=== PATIENT | female | born 2000 | race Caucasian/White ===

== ENCOUNTER 2019-05-30 21:39 | Observation (INO) | payer BC, OTHER ==
--- NOTE | 2019-05-30 22:14 | ED ---
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 Patient states her chest pain has not improved since last night. States her chest pain has improved slightly with ibuprofen. No pain/ swelling of bilateral extremities. States she has recently been around other sick college students. States she was able to go to class today but not work. States she had similar episode 3 years ago with chest pain, SOB, weakness. States she had elevated troponin in her bloodwork, was dx myocardial carditis and admitted to ICU. States she was recommended to take ibuprofen if she ever developed chest pain again. Today, patient states her mother spoke with her fagoting machine operator who referred patient to ED. Symptoms aggravated by deep breaths. Symptoms alleviated by ibuprofen. No change in symptoms with change in position. Patient states she takes melatonin and oral contraception. Occasionally drinks alcohol. - History of Current Complaint Chief Complaint: EDChestPainROMI Time Seen by Provider: 05/30/19 22:06 Hx Obtained From: Patient Onset/Duration: Started Hours Ago - 24, Still Present Timing: Constant Current Severity: Moderate Pain Intensity: 5 Pain Scale Used: 0-10 Numeric Chest Pain Location: Mid Sternal Chest Pain Radiates: No Aggravating Factor(s): Nothing Alleviating Factor(s): Other: - ibuprofen Associated Signs and Symptoms: Positive: Negative - pain/swelling of bilateral extremities, Shortness of Breath - Allergy/Home Medications Allergies/Adverse Reactions: Allergies Allergy/AdvReac Type Severity Reaction Status Date / Time hydrocodone Allergy Unknown Verified 05/30/19 21:52 Reaction Details lidocaine Allergy Unknown Verified 05/30/19 21:52 Reaction Details ondansetron [From Zofran] Allergy Unknown Verified 05/30/19 21:52 Reaction Details oxycodone Allergy Unknown Verified 05/30/19 21:52 Reaction Details tramadol Allergy Unknown Verified 05/30/19 21:52 Reaction Details Home Medications: Home Medications Ferrous Sulfate TAB* 325 mg PO DAILY 05/31/19 [History Confirmed 05/31/19] Larissia-28 Tablet 1 tab PO DAILY 05/31/19 [History Confirmed 05/31/19] Melatonin/Pyridoxine HCl (B6) [Melatonin] 1 tab PO QPM 05/31/19 [History Confirmed 05/31/19] PMH/Surg Hx/FS Hx/Imm Hx Endocrine/Hematology History: Denies: Hx Diabetes Cardiovascular History: Reports: Other Cardiovascular Problems/Disorders - myocardial carditis - Surgical History Surgical History: None Infectious Disease History: No Infectious Disease History: Denies: Traveled Outside the [place] in Last 30 Days - Family History Known Family History: Negative: Seizure Disorder - Social History Alcohol Use: Occasionally Substance Use Type: Reports: None Hx Tobacco Use: No Smoking Status (MU): Never Smoked Tobacco Review of Systems Positive: Chest Pain Positive: Shortness Of Breath Musculoskeletal: Negative - pain/swelling of bilateral extremities All Other Systems Reviewed And Are Negative: Yes Physical Exam - Summary Physical Exam Summary: Appearance: Well-appearing, Well-nourished, lying in bed comfortably Skin: Warm, dry, no obvious rash Eyes: sclera anicteric, no conjunctival pallor ENT: mucous membranes moist, pharynx appears normal Neck: Supple, nontender Respiratory: Clear to auscultation, no signs of respiratory distress Cardiovascular: Normal S1, S2. No murmurs. Normal distal pulses in tibial and radial bilaterally. No pericardial friction rub in either supine or sitting forward positions. Abdomen: Soft, nontender, normal active bowel sounds present Musculoskeletal: Normal, Strength/ROM Intact Neurological: A&Ox3, awake and alert, mentation is normal, speech is fluent and appropriate Psychiatric: affect is normal, does not appear anxious or depressed Triage Information Reviewed: Yes Vital Signs On Initial Exam: Initial Vitals Temp Pulse Resp BP Pulse Ox 98.4 F 64 18 113/82 100 05/30/19 21:49 05/30/19 21:49 05/30/19 21:49 05/30/19 21:49 05/30/19 21:49 Vital Signs Reviewed: Yes Procedures - Sedation Patient Received Moderate/Deep Sedation with Procedure: No Diagnostics - Vital Signs Vital Signs Temp Pulse Resp BP Pulse Ox 05/30/19 21:49 98.4 F 64 18 113/82 100 - Laboratory Result Diagrams: 05/30/19 22:23 05/30/19 22:23 Lab Statement: Any lab studies that have been ordered have been reviewed, and results considered in the medical decision making process. - Radiology CXR Radiology Interpretation Completed By: ED Physician Summary of Radiographic Findings: No acute process. Pending official report - EKG 2137 Cardiac Rate: NL - 62 BPM EKG Rhythm: Sinus Rhythm Summary of EKG Findings: NSR at 62 BPM, P waves, QRS complex, and T waves are within normal limits, T waves and intervals are normal, no ischemic changes. This is a normal EKG. Re-Evaluation - Re-Evaluation First Eval Re-Evaluation Time: 23:45 Change: Unchanged Comment: patient agreeable to admission Chest Pain Course/Dx - Course Course Of Treatment: 18 year old F complains of mid sternal chest pain with associated shortness of breath since 24 hours ago. Hx elevated troponin and hx myocardial carditis. Was referred to ED today by her fagoting machine operator. Physical exam findings: unremarkable. Bloodwork results with no significant abnormalities except for MCH 33 and troponin 0.45. An EKG shows NSR at 62 BPM, P waves, QRS complex, and T waves are within normal limits, T waves and intervals are normal, no ischemic changes. This is a normal EKG. CXR shows no acute process. Dr. Ashby, cardiology, recommends admission to hospitalist for observation and states cardiology will see her tomorrow. Dr. Rhodes, hospitalist, agrees to admit patient. The patient will be admitted to the hospitalist. The patient is agreeable with this plan. - Diagnoses Provider Diagnoses: Myocarditis - Provider Notifications Discussed Care Of Patient With: Anahi Ashby Time Discussed With Above Provider: 23:33 Instructed by Provider To: Other - Dr. Ashby, cardiology, recommends admission to hospitalist for observation and states cardiology will see her tomorrow. Dr. Rhodes, hospitalist, agrees to admit patient at 21:45. Discharge ED - Sign-Out/Discharge Documenting (check all that apply): Patient Departure - Admit - Discharge Plan Condition: Stable Disposition: ADMITTED TO [facility] - Billing Disposition and Condition Condition: STABLE Disposition: Admitted to [facility] - Attestation Statements Document Initiated by Scribe: Yes Documenting Scribe: Meagan Colón Provider For Whom Kimberley is Documenting (Include Credential): Bryn Rocha MD Scribe Attestation: Meagan Dahl, scribed for Bryn Rocha MD on 05/31/19 at 0512. Scribe Documentation Reviewed: Yes Provider Attestation: The documentation as recorded by the Meagan roberto accurately reflects the service I personally performed and the decisions made by me, Bryn Rocha MD Status of Scribe Document: Viewed
[2019-05-30 22:30] LABS: ABS Eosinophils 0.1 10^3/ul (0-0.6); ABS Lymphocytes 3.3 10^3/ul (1.0-4.8); ABS Monocytes 0.5 10^3/ul (0-0.8); ABS Neutrophils 4.5 10^3/ul (1.5-7.7); Eosinophil % 1.1 %; Hematocrit 37 % (35-47); Hemoglobin 12.8 g/dL (12.0-16.0); Lymphocyte % 38.6 %; Mean Corpuscular HGB Conc 34 g/dL (31-36); Mean Corpuscular Hemoglobin 33 pg (27-31); Mean Corpuscular Volume 95 fL (80-97); Mean Platelet Volume 8.8 fL (7.4-10.4); Platelet Count 261 10^3/uL (150-450); Red Blood Count 3.93 10^6 /uL (3.70-4.87); Red Cell Distribution Width 13 % (10-15); White Blood Count 8.4 10^3/uL (3.5-10.8)
[2019-05-30 22:48] LABS: ALT 15 U/L (7-52); AST 20 U/L (13-39); Albumin 4.4 g/dL (3.2-5.2); Albumin/Globulin Ratio 1.7 (1-3); Alkaline Phosphatase 46 U/L (34-104); Anion Gap 5 mmol/L (2-11); BUN/Creatinine Ratio 8.9 (8-20); Blood Urea Nitrogen 7 mg/dL (6-24); CO2 Carbon Dioxide 28 mmol/L (22-32); Calcium 9.6 mg/dL (8.6-10.3); Chloride 106 mmol/L (101-111); EGFR African American 113.4 (>60); EGFR Non-African American 93.8 (>60); Globulin 2.6 g/dL (2-4); Glucose 96 mg/dL (70-100); Potassium 3.8 mmol/L (3.5-5.0); Sodium 139 mmol/L (135-145)
[2019-05-30 22:55] LABS: HCG Pregnancy < 0.60 mIU/mL
[2019-05-30 22:56] LABS: Troponin I 0.45 ng/mL (<0.04)
[2019-05-30 23:56] LABS: C Reactive Protein < 1.00 mg/L (<8.01)
[2019-05-31] MEDS ORDERED: Ibuprofen TAB* 600 MG PO ONE (04:09)
[2019-05-31] MEDS: NS 0.9% 1000 ML** 1,000 ML IV SCH ×3 (05:13→23:45)
[2019-05-31 06:58] LABS: Troponin I 0.74 ng/mL (<0.04)
--- NOTE | 2019-05-31 07:28 | HP ---
ADMISSION HISTORY AND PHYSICAL: DATE OF ADMISSION: 05/31/19 CHIEF COMPLAINT: Chest pain. HISTORY OF PRESENT ILLNESS: This is a 18-year-old student from [employer] with past medical history of myopericarditis diagnosed roughly 2 to 3 years ago when she was just 15 or 16 years old, who was admitted to the ICU and given some ibuprofen, she clinically improved and was doing fine. She was stressed about presentation she had to give in front of her class. She felt a little nauseous before the presentation, but the nausea resolved, but after presentation, on Tuesday evening, she started having substernal chest pain radiating to her back accompanied by shortness of breath, fatigue, no cough, no fever, no chills. She also recollected that she had an episode of cold symptoms with cough about a week ago, but that has resolved since then. She denies any abdominal pain, vomiting, any diarrhea, or constipation, any numbness , tingling, weakness. During the placement of IV, the patient did have an episode where she was severely dizzy and lightheaded and it was documented that the patient may have seized and subsequently was noted to be bradycardic with a 4- to 5-second pause followed by bradycardia again, but she quickly regained her consciousness and was back to her baseline. PAST MEDICAL HISTORY: As mentioned, she did have a similar event of the kira versus pericarditis 3 years ago, history of depression for which she just medicates herself with Weogufka's Wort. PAST SURGICAL HISTORY: Includes wisdom tooth extraction and some dental gum graft placement. HOME MEDICATIONS: The patient is currently on: 1. Larissia as oral contraceptive daily. 2. Melatonin to help her sleep. 3. Ferrous sulfate/iron along with the Weogufka's Wort, which she takes on a regular basis. ALLERGIES: She does not actually have any allergies, but the patient was tested with [employer] and was noted to have some genetic variance with decreased processing of hydrocodone, lidocaine, Zofran, oxycodone, and tramadol, but these are not true allergies. FAMILY HISTORY: The patient's mom is in her 50s, is otherwise healthy. Her father is a sperm donor and she does not known much about his history. Her sister, who is also a half-sister from a different sperm donor, is 13 years old and also healthy. SOCIAL HISTORY: She denies any smoking, although she did state that she used to smoke the Juul, which is an e-cigarette type during her senior years and she has also tried marijuana in the past. She currently studies in college and has tried occasional alcohol. She is in the [employer] and her mom is in [place], who is her surrogate decision-maker. REVIEW OF SYSTEMS: A 14-point review of systems did not reveal any new information other than what is mentioned in the HPI. PHYSICAL EXAMINATION GENERAL: The patient is awake, alert, oriented x3, did not appear to be in any acute respiratory distress. VITAL SIGNS: In the ER, BP was noted to be 118/64, heart rate 72, respiration rate 18, saturating 100% on room air, temperature was recorded at 98.4. HEAD AND NECK: Atraumatic, normocephalic. Bilateral pupils are reactive. Oral mucosa was moist. NECK: Supple. No jugular venous distention. LUNGS: Clear to auscultation bilaterally. No wheezing, rhonchi, rales. HEART: S1, S2. Regular rate and rhythm. DIAGNOSTIC STUDIES/LAB DATA: CBC was unremarkable. D-dimer was less than 200. Comprehension metabolic panel was unremarkable with the exception of troponin, which was 0.45 initially and repeat troponin was 0.60. EKG was showing sinus rhythm with 62 beats per minute without any significant ST elevation. AVF does show some less than 0.[address] segment elevation, but this is an isolated incident. IMPRESSION: This is a 18-year-old female with history of myopericarditis, here due to chest pain without any ST elevations or changes, but does note to have some elevated troponin. ASSESSMENT: 1. Chest pain with elevated troponin, unclear etiology. I do not see any pericarditis at this point, but given her previous history, we will give a dose of ibuprofen as the risk of using ibuprofen is very low and check an echocardiogram. We will consult Cardiology regarding further treatment plan. 2. History of temporary bradycardia during IV insertion with questionable convulsion. We will place the patient on seizure precautions, but otherwise I do not see a point of anticonvulsants at this point as it is possible that the shaking that the nurse saw was just related to bradycardia. If this symptom recurs, we would consider an EEG versus neurological evaluation by neurologist. 3. History of depression. 4. DVT prophylaxis with encouragement of the ambulation. [id number]/[facility] #: [id number] JULIANE
--- NOTE | 2019-05-31 07:38 | PN ---
Subjective Date of Service: 05/31/19 Interval History: HD 1 in 05/31 Complains of substernal chest pain-12/01. NO fever, chills, SOB, palpitation at present Had cold 1 week ago. has exposure to sick contact in college Objective Active Medications: Sodium Chloride (Ns 0.9% 1000 Ml) 1,000 mls @ 100 mls/hr IV PER RATE ROSA Last Admin: 05/31/19 05:13 Dose: 100 mls/hr Vital Signs - 8 hr 05/31/19 05/31/19 05/31/19 00:30 00:47 01:00 Temperature Pulse Rate 76 77 66 Respiratory 22 15 23 Rate Blood Pressure 110/77 123/79 117/69 (mmHg) O2 Sat by Pulse 99 98 100 Oximetry 05/31/19 05/31/19 05/31/19 01:15 01:30 01:45 Temperature Pulse Rate 74 71 71 Respiratory 18 20 18 Rate Blood Pressure 110/70 109/69 120/68 (mmHg) O2 Sat by Pulse 100 99 98 Oximetry 05/31/19 05/31/19 05/31/19 02:00 02:15 02:30 Temperature Pulse Rate 69 95 72 Respiratory 20 18 18 Rate Blood Pressure 112/68 118/67 114/75 (mmHg) O2 Sat by Pulse 99 99 98 Oximetry 05/31/19 05/31/19 05/31/19 02:45 03:12 03:15 Temperature Pulse Rate 101 78 Respiratory 16 16 21 Rate Blood Pressure 123/74 130/73 (mmHg) O2 Sat by Pulse 98 97 Oximetry 05/31/19 05/31/19 05/31/19 03:30 03:45 04:00 Temperature Pulse Rate 81 79 71 Respiratory 17 21 18 Rate Blood Pressure 122/71 122/72 116/75 (mmHg) O2 Sat by Pulse 99 99 Oximetry 05/31/19 05/31/19 05/31/19 04:15 04:19 04:30 Temperature Pulse Rate 69 92 71 Respiratory 20 15 18 Rate Blood Pressure 114/66 114/66 118/64 (mmHg) O2 Sat by Pulse 98 98 99 Oximetry 05/31/19 05/31/19 05/31/19 04:45 05:07 05:10 Temperature 98.4 F 98.6 F Pulse Rate 93 80 63 Respiratory 24 15 16 Rate Blood Pressure 118/75 123/79 118/64 (mmHg) O2 Sat by Pulse 98 98 100 Oximetry 05/31/19 07:12 Temperature Pulse Rate Respiratory 18 Rate Blood Pressure (mmHg) O2 Sat by Pulse Oximetry Oxygen Devices in Use Now: None Exam: Patient is sitting in a bed with no acute distress. HEENT: Normocephalic and Atraumatic Lungs: Clear with no added sounds Heart: S1/S2 heard with no murmur Abdomen: soft, nondistended and nontender Extremities: Normal Neuro: Alert, oriented and conscious Result Diagrams: 05/30/19 22:23 05/30/19 22:23 Assess/Plan/Problems-Billing Assessment: 18 y/o F with h/o myopericarditis 3 years ago presented with acute substernal pleuritic chest pain associated with sob. FOund to have elevated troponin with 1 episode of bradycardia. - Patient Problems (1) Myopericarditis Current Visit: Yes Status: Acute Code(s): I31.9 - DISEASE OF PERICARDIUM, UNSPECIFIED SNOMED Code(s): 707437084 Comment: -hs substernal chest pain;+/- pleuritic; positional -has flu like sx 1 week ago; sick contact present -Initial EKG normal; ECG this mornin gshows shows minimal ST elevation in avF and III. - Troponin elevated: indicates muscle damage -ECHo normal EF with no pericardial effusion and no RWMA. -We will follow serial ECG and troponin -will give ibuprofen and colchicine -cardio following - has recurrent pericarditis; so need to rule out autoimmune process -refrain from exertion (2) Bradycardia Current Visit: Yes Status: Acute Code(s): R00.1 - BRADYCARDIA, UNSPECIFIED SNOMED Code(s): 57664149 Comment: -transient in ED; after she was told that someone will draw blood -resolved now -may be vasovagal syncope -has similar history in past; fainted after blood draw -we will monitor her in tele (3) Depression Current Visit: Yes Status: Acute Code(s): F32.9 - MAJOR DEPRESSIVE DISORDER , SINGLE EPISODE, UNSPECIFIED SNOMED Code(s): 54806658 Comment: -no active suicidal ideation at present -was using oj wort (4) DVT prophylaxis Current Visit: Yes Status: Acute Code(s): Z29.9 - ENCOUNTER FOR PROPHYLACTIC MEASURES, UNSPECIFIED SNOMED Code(s): 872419181 Comment: -low risk (5) Full code status Current Visit: Yes Status: Acute Code(s): Z78.9 - OTHER SPECIFIED HEALTH STATUS SNOMED Code(s): 719315713 Status and Disposition: Inpatient; cardio following Attending: Aiden Horner Attestation Documenting Resident: Ruben Hayward Supervising Physician: Aiden Horner Attending/Supervising Physician Comment: Agree with plan as outlined in note from today unless indicated. Chest pain - history of myopericarditis but non elevated inflammatory markers and no EKG changes. This has been the case in [place] past after conversations with her inspector wire products. She has had cMRI that was consistent with myopericarditis. Motrin/Colchine and monitor overnight. Attestation: This service has been performed in part by a resident under the direction of a teaching physician.I, Aiden Horner, performed the service, or was physically present during the critical, or medina portions of the service, furnished by the resident. I participated in the management of the patient.
[2019-05-31] MEDS ORDERED: Aspirin TAB* 325 MG PO ONE ×2 (07:49→12:24)
[2019-05-31] MEDS ORDERED: Potassium Chloride* LIQUID 20 MEQ/15 ML UDC PO ONE (08:31)
[2019-05-31 08:52] LABS: C Reactive Protein < 1.00 mg/L (<8.01)
[2019-05-31 09:53] LABS: Troponin I 0.93 ng/mL (<0.04)
[2019-05-31] MEDS ORDERED: Colchicine* 0.6 MG TAB PO SCH (10:00)
[2019-05-31] MEDS: Ibuprofen TAB* 600 MG PO SCH ×2 (10:42→17:43)
--- NOTE | 2019-05-31 13:00 | ECHO ---
*[facility]* [place] [address] Fax #: [phone] Transthoracic Echocardiogram Patient: Paty Wade : 2000 Study Date: 05/31/2019 Age: 18 Gender: F HR: 73 bpm Height: 63 in /160 cm BSA: 1.53 m^2 Weight: 114.8 lb /52.2 kg BMI: 20.4 kg/m^2 *Benefits Administrator: * Britt Carrillo RD *Referring Physician: * Mikhail Paredes MD *Reading Physician: * Mikhail Paredes MD History: PMH: Myopericarditis. Conclusions Summary: - Impressions: The study is unchanged since the study of September 2017. - Left ventricle: Systolic function is normal. The estimated ejection fraction is 55-60%. - Mitral valve: There is trace to mild regurgitation. - Tricuspid valve: There is physiologic regurgitation. Study data: Transthoracic echocardiogram. Procedure: Transthoracic echocardiography was performed. Image quality was fair. The study was technically limited due to poor acoustic window availability. Complete 2D, spectral Doppler, and color flow Doppler. Location: Bedside. Patient status: Inpatient. Patient room number: 453. The previous study was not available, so comparison is made to the report of September 2017. Rhythm: Normal sinus rhythm. Findings Left ventricle: The cavity size is normal. Wall thickness is normal. Systolic function is normal. The estimated ejection fraction is 55-60%. Wall motion is normal; there are no regional wall motion abnormalities. Left ventricular diastolic function parameters are normal. Right ventricle: The cavity size is normal. Systolic function is normal. Systolic pressure is within the normal range. Left atrium: The atrium is normal in size. Right atrium: The atrium is normal in size. Mitral valve: The leaflets are normal thickness. There is no evidence of stenosis. There is trace to mild regurgitation. Aortic valve: The valve is trileaflet. The leaflets are normal thickness. There is no evidence of stenosis. There is no significant regurgitation. Tricuspid valve: The leaflets are normal thickness. There is no evidence of stenosis. There is physiologic regurgitation. Pulmonic valve: The leaflets are normal thickness. There is no evidence of stenosis. There is trace regurgitation. Aorta: Aortic root: The aortic root is appears normal. Ascending aorta: The ascending aorta is appears normal. Aortic arch: The aortic arch is appears normal. Pericardium: There is no significant pericardial effusion. Doppler: Respirophasic change in transvalvular velocities is within normal limits. Pulmonary arteries: The main pulmonary artery is normal-sized. Systolic pressure is within the normal range. Systemic veins: Inferior vena cava: The vessel is normal in size. There is (>= 50%) respiratory change in the IVC dimension. Measurements Left ventricle Value Ref Aortic valve Value Ref LASHANDA, LAX 4.1 cm 3.8 - 5.2 Gloria diam, ED 1.8 cm ----- ESD, LAX 2.5 cm 2.2 - 3.5 Peak v, S 1.1 m/sec ----- FS, LAX 39 % 27 - 45 VTI, S 20.6 cm ----- PW, ED, LAX 0.8 cm 0.6 - 0.9 Mean grad, S 3.0 mm Hg ----- FS 39 % 27 - 45 Peak grad, S 5.0 mm Hg ----- PW, ED 0.8 cm 0.6 - 0.9 LVOT/AV, VTI ratio 0.92 ----- E', lat gloria, TDI 20.0 cm/sec >=10.0 E/e', lat gloria, 4 Mitral valve Value Ref TDI Peak E 0.78 m/sec ----- E', med gloria, TDI 14.5 cm/sec >=7.0 Peak A 0.35 m/sec --- -- E/e', med gloria, 5 Decel time 173 ms ----- TDI Peak grad, D 2.4 mm Hg ----- E', avg, TDI 17.3 cm/sec Peak E/A ratio 2.2 ----- E/e', avg, TDI 4 <=14 Pulmonic valve Value Ref LVOT Value Ref Peak v, S 0.79 m/sec ----- Peak tommie, S 0.98 m/sec Peak grad, S 3.0 mm Hg ----- VTI, S 19.0 cm Mean grad, S 2 mm Hg Tricuspid valve Value Ref TR peak v 2.13 m/sec <=2.8 Ventricular septum Value Ref Peak RV-RA grad, S 18 mm Hg ----- IVS, ED 0.8 cm 0.6 - 0.9 Aortic root Value Ref Right ventricle Value Ref Root diam 2.3 cm <2.9 LASHANDA, LAX 2.7 cm LASHANDA minor ax, A4C 3.4 cm 1.9 - 3.5 Ascending aorta Value Ref mid AAo AP diam, S 2.3 cm ----- Pressure, S 21 mm Hg Aortic arch Value Ref Left atrium Value Ref Arch diam 1.7 cm ----- AP dim, ES 2.90 cm 2.70 - 3.80 Decending aorta Value Ref ML dim, A4C 3.9 cm Quita peak tommie 1.04 m/sec ----- SI dim, A4C 4.3 cm Vol/bsa, ES, 1-p 29 ml/m^2 11 - 40 Pulmonary artery Value Ref A4C Pressure, S 18.0 mm Hg ----- Vol/bsa, ES, A/L 25 ml/m^2 16 - 34 Inferior vena cava Value Ref Right atrium Value Ref Diam 1.6 cm ----- SI dim, ES 4.1 cm 3.4 - 5.3 ML dim, ES, A4C 3.8 cm 2.6 - 4.4 SI dim, ES, A4C 4.1 cm 3.4 - 5.3 Estimated RAP 3 mm Hg Legend: (L) and (H) samantha values outside specified reference range. Prepared and electronically signed by Mikhail Paredes MD 05/31/2019 13:00
[2019-05-31 13:26] LABS: Troponin I 0.94 ng/mL (<0.04)
--- NOTE | 2019-05-31 14:00 | CONS ---
CARDIOLOGY CONSULTATION: DATE OF CONSULT: 05/31/19 PATIENT OF: Dr. Serrano. REASON FOR EVALUATION: Chest pain, troponin elevation. HISTORY OF PRESENT ILLNESS: This is a 18-year-old woman who has a history of chest pain, thought to be due to myopericarditis. In the past, she has had elevated troponins with her episodes, but without significant EKG changes or inflammatory marker elevations. She says her first episode was about 3 years ago and she was hospitalized for 5 days. She apparently had recurrent episodes and was seen in September of 2016 for chest pain. She originally presented on 11/18, presumably with chest, neck and back pain and subtle ST elevations, troponin elevation, normal cardiac function by echo. She was diagnosed with presumed myopericarditis, started on ibuprofen which she took for 2 weeks and colchicine 0.6 mg twice a day. She had another episode in November and had a troponin elevation despite no active chest pain. She was watched until her troponin normalized. At that visit, she had cardiac MRI with gadolinium enhancement, which revealed enhancement in the myocardium and epicardium confirming the provisional diagnosis. Her symptoms were somewhat atypical and she did not have any prodrome viral illnesses. Alternate diagnoses were considered and she was discharged home on ibuprofen and colchicine. In January of 2017, she apparently had some episodes of mild chest pain. Workup at that time revealed no recurrent myopericarditis. The patient said that she has had episodes of chest pain lasting a few hours approximately once every few months. She attributes them to being provoked with stress. She said that she had an upper respiratory infection about 2 weeks ago with a cold that lasted about 4 to 5 days. She thinks she had some chills at that time. No significant fever. She said she recovered from that and was preparing for a speech which she had to give on Tuesday night at 7:30. She did that and then afterwards developed chest pain. She said it was similar to her previous episodes. She felt tired and took some ibuprofen. Because she slept much of Tuesday, she was able to go to class, but felt fatigued. She decided not to go to work. She took more ibuprofen on Tuesday and because of persistent pain, she decided to come to the emergency room yesterday. She denies any nausea, vomiting, diarrhea. No fevers or chills currently. No orthopnea. She apparently did have an episode of syncope when an IV was being placed. She said that she felt sweaty beforehand and felt her vision dim and then passed out. She said she had a similar episode like that when blood was being drawn when she was hospitalized for myopericarditis 3 years ago. She said that the ibuprofen has only partially improved her pain, which has gone from 5-6/10 down to 3/10. She said that she had been able to get out of bed and go to the bathroom. She said her pain is worse lying down and better sitting up. It is more of a pressure. She said that she was active in sports when she was in high school, but had not had time for regular exercise at college. PAST MEDICAL HISTORY: History of presumed myopericarditis; possible ADHD, not on medications since approx 3 years ago; and chronic persistent back pain. PAST SURGICAL HISTORY: Includes wisdom teeth extracted and a skin graft in her mouth in the past. HOME MEDICATIONS: Include: 1. Larissia as an oral contraceptive. 2. Melatonin for sleep. 3. Iron. 4. [place]'s Wort. ALLERGIES: She denies any allergies, although she was tested with [employer] and noted to have some genetic variance with decreased processing to hydrocodone, lidocaine, Zofran, oxycodone, and tramadol. FAMILY HISTORY: Reveals her mom in her 50s who is healthy. Father was a sperm donor and history is unknown. Her sister who is a half-sister, 13 years old and healthy. SOCIAL HISTORY: She denies tobacco use. She says she occasionally has alcohol and can drink up to 4 drinks on the weekends. She denies recreational drugs. 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 She resides in [place]. ros neg x 10 except as above. PHYSICAL EXAM: She is a well-developed, well-nourished female, in no apparent distress. Her blood pressure is 101/53, pulse of 90, O2 sat 99% on room air, temperature 98.1. Atraumatic, normocephalic. Extraocular muscles intact. Sclerae anicteric. No significant JVD. Carotids 2+ without bruits. No cervical adenopathy. Cardiac Exam: S1, S2 without murmurs, gallops, or rubs; physiologically split S2. Chest was clear. No CVAT. Abdomen: Bowel sounds present. Nontender. Femoral pulses intact without bruits. Distal pulses intact. No edema. Motor strength 5/5 bilaterally. Deep tendon reflexes 2/4 in the lower extremities and right upper extremity. Left upper extremity was not tested due to the IV bandage. DIAGNOSTIC STUDIES/LAB DATA: Labs include troponin was 0.45 last night, 0.60 at 2:50 a.m. today, 0.74 at 6:30 and 0.93 at 9:20. Her CRP was less than 1 x2. Her beta hCG was negative. Potassium was 3.8, BUN was 7, creatinine of 0.79. CBC was unremarkable and sed rate was 6. Chest x-ray was unremarkable. EKG from 05/30/19 at 2137 revealed sinus rhythm. No acute changes. Repeat EKG from 8:27 this morning revealed sinus rhythm with minimal ST elevation in III and aVF compared to yesterday. IMPRESSION AND PLAN: My impression is that Ms. Wade appears to have a recurrent episode of myopericarditis, although somewhat atypical in terms of the pattern of the pain and the lack of inflammatory markers. This presentationt seems to be similar in presentation to other episodes she has had. I did discuss this with the patient and with Dr. Horner, who had spoken to her heel seat flap stapler in [place] and confirmed the history of previous episodes with similar presentations. She also had an episode of syncope when her IV was being placed. It appeared that she developed sinus bradycardia with some pauses followed by a junctional rhythm, which raises the possibility of a vasovagal episode. I did discuss with her the importance of pain control and avoidance of exertion until she recovers. For the time being, I would recommend the followin. I would follow her serial troponins and observe for resolution of her troponin elevations. 2. We would follow serial EKGs. 3. We would maintain a potassium over 4. 4. We would use nonsteroidal anti-inflammatories as tolerated and consider using aspirin if she fails to have control with ibuprofen. 5. We would continue colchicine as you are doing 0.6 mg qd and continue that for 6 to 12 months given her history of recurrences. She may need to continue that shelter. 6. I explained to her that she is at risk for recurrent episodes in the future and may be best served with chronic colchicine if she can tolerate it. 7. Given the somewhat atypical presentation, I would consider possibility of obtaining a CTA to confirm normal coronaries as well as consider the possibility of vasomotor dysfunction and spasm. Given her history of chest pain with stress, a trial of nitroglycerin preparation at some point might be considered. I did strongly recommend she refrain from exertion and school until her pain resolves and to refrain from vigorous exertion for 6 months. We also considered the possibility of corticosteroid if she fails to have relief with the nonsteroidal anti- inflammatories; however, I am reluctant to do that due to the risk of complications. She understands and agrees. I would continue with ibuprofen for 1 to 2 weeks and then gradually taper once her symptoms have resolved. Alternativley, we would consider aspirin 650 mg 3 times a day for 1 to 2 weeks and taper after her symptoms resolve. I would reduce her colchicine to 0.6 mg a day given her weight of less than 70 kg. I would restrict her activity for 3 months. Although pulmonary embolism seems less likely in this setting, I would consider a ddimer given her h/o oral contraceptive use Discussed with the patient and her mother Carleen at the patient's request and Dr. Aburto. [id number]/[facility] #: [id number] [facility]ENTER[facility]iguel
[2019-05-31 16:07] LABS: Troponin I 0.78 ng/mL (<0.04)
[2019-06-01] MEDS: Ibuprofen TAB* 600 MG PO SCH ×2 (03:06→08:46)
[2019-06-01 06:04] LABS: ABS Eosinophils 0.2 10^3/ul (0-0.6); ABS Lymphocytes 2.9 10^3/ul (1.0-4.8); ABS Monocytes 0.6 10^3/ul (0-0.8); ABS Neutrophils 3.6 10^3/ul (1.5-7.7); Eosinophil % 2.2 %; Hematocrit 34 % (35-47); Hemoglobin 11.5 g/dL (12.0-16.0); Lymphocyte % 39.7 %; Mean Corpuscular HGB Conc 33 g/dL (31-36); Mean Corpuscular Hemoglobin 32 pg (27-31); Mean Corpuscular Volume 97 fL (80-97); Nucleated Red Blood Cells % 0.1; Platelet Count 200 10^3/uL (150-450); Red Blood Count 3.57 10^6 /uL (3.70-4.87); Red Cell Distribution Width 13 % (10-15); White Blood Count 7.2 10^3/uL (3.5-10.8)
[2019-06-01 06:09] LABS: Blood Urea Nitrogen 6 mg/dL (6-24); C Reactive Protein < 1.00 mg/L (<8.01); CO2 Carbon Dioxide 26 mmol/L (22-32); Calcium 8.9 mg/dL (8.6-10.3); EGFR African American 120.5 (>60); EGFR Non-African American 99.5 (>60); Glucose 86 mg/dL (70-100); Magnesium 1.9 mg/dL (1.9-2.7); Sodium 141 mmol/L (135-145)
[2019-06-01 06:10] LABS: Anion Gap 3 mmol/L (2-11); Chloride 112 mmol/L (101-111)
[2019-06-01 06:12] LABS: Troponin I 0.71 ng/mL (<0.04)
[2019-06-01 08:50] LABS: Erythrocyte Sed Rate 6 mm/Hr (0-19)
[2019-06-01] MEDS ORDERED: Colchicine* 0.6 MG TAB PO SCH (09:00)
[2019-06-01 10:00] VITALS: BP 109/63
--- NOTE | 2019-06-01 19:55 | DS ---
CC: Dr. Paredes * DISCHARGE SUMMARY: DATE OF ADMISSION: 05/31/19 DATE OF DISCHARGE: 06/01/19 PRIMARY DIAGNOSIS: Myopericarditis. CONSULTS: Dr. Paredes of Cardiology. DISCHARGE MEDICATIONS: 1. Colchicine 0.6 mg daily. 2. Ibuprofen 600 mg 3 times a day with meals. 3. Ferrous sulfate 325 mg daily in an empty stomach. 4. Melatonin nightly as needed for sleep. 5. Larissia-28 tablet 1 tablet daily. HISTORY OF PRESENT ILLNESS: Ms. aWde is a 18-year-old woman with a history of possible myopericarditis, who is presenting with chest pain. Approximately 2 to 3 years ago, the patient had elevated troponin associated with chest pain but without significant EKG changes or without positive inflammatory markers. The first episode was approximately 3 years ago and she was hospitalized for 5 days. She had a recurrent episode in September of 2016 for chest pain and she was found with subtle ST elevations, troponin elevation, and normal cardiac function by echo. She was discharged with presumed myopericarditis and discharged with ibuprofen and colchicine. In November of this year, she again had a troponin elevation without active chest pain and she was monitored until her troponin normalized, and during that episode, she had a cardiac MRI with gadolinium enhancement, which revealed an enhancement in the myocardium and epicardium confirming the provisional diagnosis. Alternative diagnoses were considered and she was discharged home on ibuprofen and colchicine. The patient recently was stressed about a presentation she had to give in front of her class. She felt a bit nervous before this presentation, and the nausea resolved, but approximately 3 days prior to presentation this time, she began experiencing substernal chest pain radiating to her back accompanied by shortness of breath and fatigue. The patient denied cough, fevers, or chills. The patient does report cold symptoms approximately 1 week prior to presentation, which have since resolved. She denies abdominal pain, vomiting, diarrhea, or constipation. HOSPITAL COURSE: In the emergency room, the patient was found to have a troponin elevated to 0.6 , which subsequently peaked by next day to 0.94 and then downtrended. Her EKG was a normal sinus rhythm without acute changes. A repeat next day revealed minimal ST elevations in III and aVF compared to day prior. A chest x-ray was unremarkable. She was again initiated on antiinflammatories and colchicine. Cardiology discussed with the patient possible outpatient workup with CTA. The patient had significant improvement in her symptoms throughout admission and she was deemed safe to discharge to follow up with her long-term outpatient prospecting observer, dry plasterer helper, and PCP, who are in [place]. Her mother visited during the admission and was going to plan to drive her back to [place] on day of discharge. The patient was recommended to have activity restriction for 3 months. On day of discharge, a complete 10-point review of systems was performed and all symptoms were negative. PHYSICAL EXAMINATION: Afebrile, heart rate 64, blood pressure 109/63, respiratory rate 16, oxygen saturation 100% on room air. In general, she is a well-appearing woman in no acute distress, who is alert and interactive, and using FaceTime in chair next to her mother. Neck: No JVD. Supple. Lungs: Clear to auscultation bilaterally. Heart: Regular rate and rhythm. No murmurs , gallops, or rubs. Abdomen: Soft, nontender, nondistended. Skin: Warm and dry. DIAGNOSTIC STUDIES/LAB DATA: CBC notable for normal WBC and mild anemia to 11.5 with normal MCV. BMP and LFTs unremarkable. D-dimer negative. Troponin peak 0.94. CRP less than 1 and ESR 6. Transthoracic echocardiogram: Studies unchanged from echo in September 2017. LV systolic function normal with estimated EF 55% to 60%, mitral valve with trace- to- mild regurgitation, tricuspid valve with physiologic regurgitation, otherwise unremarkable. DISCHARGE PLAN: The patient will be discharged to follow up closely with her prior prospecting observer , dry plasterer helper, and primary care physician in [place]. She is given a course of colchicine and ibuprofen, which has helped her symptomatically in the past. She is to have activity restriction for the next 2 weeks and avoid exertion for the next next few months. She was advised to taper her ibuprofen as per Cardiology. The patient was educated on return precautions, which include but are not limited to worsening of chest pain or new symptoms of hematemesis, melena, or blood in stool, or heartburn. She is to eat a healthy diet low in processed foods and resume activity as tolerated. DISPOSITION: Home. CONDITION: Improved. TIME SPENT: Approximately 60 minutes was spent on discharge of this patient, more than half of which was spent at bedside for interview and exam. [id number]/[facility] #: [id number] [facility]Miguel
== END 2019-06-01 12:45 | disposition home or self-care (01) ==
LOC: ED 21:39 → OBSVTOIN 05-31 04:05 → INTOOBSV 05-31 04:05 → MEDTELE 05-31 04:05
PROVIDERS: ADMIT Internal Medicine; ATTEND Internal Medicine
DX: I51.4 Myocarditis, unspecified (principal); I31.9 Disease of pericardium, unspecified; R00.1 Bradycardia, unspecified; R00.2 Palpitations; R07.9 Chest pain, unspecified; Z79.899 Other long term (current) drug therapy; R42 Dizziness and giddiness; Z79.3 Long term (current) use of hormonal contraceptives; F32.9 Major depressive disorder, single episode, unspecified; R79.89 Other specified abnormal findings of blood chemistry
CPT/HCPCS: 36415; 71046; 80048; 80053; 83735; 84484; 84702; 85025; 85379; 85652; 86140; 93005; 93306; 99284; A9270-GY; G0378